=== PATIENT | female | born 1985 | race Caucasian/White ===

== ENCOUNTER → 2020-04-25 14:26 | Outpatient (CLI) | payer BC, SELFPAY ==
--- NOTE | 2020-04-25 14:38 | XR_ITS ---
PROCEDURE: XR FOOT WT BEARING RT 3V CLINICAL INDICATION: pain COMPARISON: No exams were available for comparison FINDINGS: No fracture or dislocation. No lytic or blastic change. There is normal mineralization. The joint spaces are well-preserved. No significant degenerative/arthritic changes. No erosive changes evident. Other findings:There is a prominent calcaneal spur. No bony erosive change evident of the spur. IMPRESSION: Calcaneal spur otherwise negative Dictated by: Rian Lawson MD 04/25/2020 17:29 Rian Lawson MD in [place] 04/25/2020 17:29
--- NOTE | 2020-04-25 14:38 | XR_ITS ---
PROCEDURE: XR FOOT WT BEARING LT 3V CLINICAL INDICATION: pain COMPARISON: No exams were available for comparison FINDINGS: No fracture or dislocation. No lytic or blastic change. There is normal mineralization. The joint spaces are well-preserved. No significant degenerative/arthritic changes. No erosive changes evident. Other findings:None. IMPRESSION: No acute findings. Dictated by: Rian Lawson MD 04/25/2020 17:28 Rian Lawson MD in [place] 04/25/2020 17:28
== END ==
PROVIDERS: PCP Nurse Practitioner Family; Visit Provider Podiatrist
DX: M72.2 Plantar fascial fibromatosis (principal)
CPT/HCPCS: 73630